=== PATIENT | male | born 1960 | race African-American/Black ===

== ENCOUNTER 2020-05-05 19:10 | Inpatient (IN) | payer OTHER ==
[~2020-05-05] VITALS: Ht 177.8 cm; Wt 79.8 kg
[2020-05-05 19:14] VITALS: BP 186/113
[2020-05-05 19:41] LABS: ABSOLUTE NEUTROPHILS 7.1 thou/uL (1.4-8.2); BASOPHILS 0.4 % (0.0-2.0); EOSINOPHILS 0.6 % (0.0-3.0); HEMATOCRIT 50.8 % (42.0-52.0); HEMOGLOBIN 16.5 gm/dL (14.0-18.0); LYMPHOCYTES 11.4 % (24.0-44.0); MCH 28.2 pg (26.0-34.0); MCHC 32.5 g/dL (28.0-37.0); MCV 86.7 fL (80.0-100.0); MONOCYTES 6.1 % (1.0-8.0); PLATELET COUNT 174 thou/uL (150-400); POLYS 81.5 % (36.0-66.0); RBC 5.85 mil/uL (4.50-6.00); RDW 14.7 % (10.5-14.5); WBC 8.8 thou/uL (4.0-11.0)
[2020-05-05 19:57] LABS: ANION GAP 10 mmol/L (7-16); BUN 15 mg/dL (7-18); CALCIUM 8.8 mg/dL (8.5-10.1); CHLORIDE 101 mmol/L (98-107); CO2 29 mmol/L (21-32); CREATININE 0.9 mg/dL (0.7-1.3); GLUCOSE 104 mg/dL (74-106); POTASSIUM 4.6 mmol/L (3.5-5.1); SODIUM 140 mmol/L (136-145)
[2020-05-05 20:04] LABS: ALBUMIN 4.4 g/dL (3.4-5.0); SGOT 35 U/L (15-37); SGPT 36 U/L (30-65); TOTAL BILIRUBIN 0.5 mg/dL (0.2-1.0); TROPONIN-I <0.06 ng/mL (<0.06)
[2020-05-05 20:53] VITALS: BP 120/79
[2020-05-05] MEDS ORDERED: TRAMADOL-ACETA1 EACH PO (20:54)
[2020-05-05] MEDS ORDERED: LIPITOR40 MG PO (20:55)
[2020-05-05] MEDS ORDERED: CHILDREN'S ASPI81 M1 PO (20:55)
[2020-05-05] MEDS ORDERED: PROAIR HFA8.5 GM INH (21:00)
[2020-05-05 21:11] LABS: BE(vivo) 0.4 mmol/L (-2 to +3); HCO3 26.2 mmol/L (22.0-26.0); PCO2 46.4 mmHg (35.0-45.0); PO2 111.4 mmHg (80.0-100.0); sO2 97.9 % (92.0-98.0)
[2020-05-05 21:46] VITALS: BP 121/76
[2020-05-05 21:57] VITALS: BP 166/88
--- NOTE | 2020-05-06 03:25 | NUR ---
ASSESSMENT: PT REMAIN ALERT AND ORIENT TIMES THREE, FORGETFUL. IS NOT A GOOD HISTORIAN REGARDING HIS CARE, HIS EQUIPMENT (OXYGEN) AT HOME. DENIES ANY CARDIAC HX. DENIES PAIN. SOB WITH EXERTION, LUNG SOUNDS COARSE/WHEEZY. DOES GET BREATHING TX EVERY 4 HOURS. SR-ST PER MONITOR. WILL CONTINUE TO MONITOR.
[2020-05-06 05:42] VITALS: BP 135/77
[2020-05-06 07:13] LABS: CHOLESTEROL 140 mg/dL (<200); HDL CHOLESTEROL 74 mg/dL (>40); LDL CHOLESTEROL 55 mg/dL (<100); TC:HDL 1.9 Ratio (Not establshd); TRIGLYCERIDE 56 mg/dL (<150); VLDL 11 mg/dL (<40)
[2020-05-06 07:30] VITALS: BP 142/76
--- NOTE | 2020-05-06 07:39 | EKG ---
[facility] [place] [address] ELECTROCARDIOGRAM REPORT Name: PROSPER BANUELOS Room #: 219-P ADM IN M.R.#: [id number] Admission: 05/05/20 Attend Phys: Becca Mckenna Discharge: Date of : 60 Report #: [id number] THIS REPORT FOR: cc: DANK CRENSHAW MD Physician not on staff Lux Alvarenga MD [facility] ~ THIS REPORT FOR: //name// [facility] ED Test Date: 2020-05-05 Test Time: 19:42:14 Pat Name: PROSPER BANUELOS Department: Room: 219 Gender: M Plant Health Care Technician: : 1960 Requested By: Agus Joyner Order Number: [id number] MD: Lux Alvarenga Measurements Intervals [place] Rate: 105 P: 86 [place]: 151 QRS: -5 QRSD: 100 T: 61 QT: 360 QTc: 476 Interpretive Statements Sinus tachycardia Biatrial enlargement Borderline prolonged QT interval No previous ECG available for comparison Electronically Signed On 05-06-2020 7:39:13 CDT by Lux Alvarenga [email or web address] <ELECTRONICALLY SIGNED> By: Lux Alvarenga MD, FACC 05/06/20 0739 41 41 Lux Alvarenga MD, FAC /EPI
--- NOTE | 2020-05-06 10:30 | NUR ---
JACQUELYN ON 3W CALLED FOR REPORT. PT TO BE TRANSFERRED TO ROOM 356 FOR COVID R/O.
[2020-05-06 10:47] VITALS: BP 148/71
--- NOTE | 2020-05-06 13:30 | NUR ---
VOICEMAIL LEFT WITH NEXT OF KIN REGARDING TRANSFER.
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
[2020-05-06 13:51] LABS: AMP/METHAMP Negative (Negative); BARBITURATES Negative (Negative); BENZODIAZEPINES Negative (Negative); COCAINE POSITIVE (Negative); METHADONE Negative (Negative); OPIATES Negative (Negative); PCP Negative (Negative)
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
[2020-05-06 15:50] VITALS: BP 140/82
[2020-05-06 19:29] VITALS: BP 140/92
[2020-05-07 04:08] VITALS: BP 117/67
[2020-05-07 06:26] LABS: HEMATOCRIT 44.8 % (42.0-52.0); MCH 27.9 pg (26.0-34.0); MCV 87.5 fL (80.0-100.0); RBC 5.13 mil/uL (4.50-6.00); RDW 14.7 % (10.5-14.5)
[2020-05-07 06:37] LABS: HEMOGLOBIN 14.3 gm/dL (14.0-18.0)
--- NOTE | 2020-05-07 06:43 | NUR ---
FOLLOWING POC WITH IVPB ANTIBIOTICS AND OXYGEN THERAPY. VSS, NO FEVERS, NO N/V OR COMPLAINTS OF PAIN. PT VOIDS VIA URINAL AND SLEPT PEACEFULLY.
[2020-05-07 06:52] LABS: CALCIUM 8.7 mg/dL (8.5-10.1); CREATININE 1.3 mg/dL (0.7-1.3); POTASSIUM 4.3 mmol/L (3.5-5.1)
[2020-05-07 08:00] VITALS: BP 145/83
--- NOTE | 2020-05-07 13:11 | NUR ---
SW reviewed chart and spoke with nursing and attending physician. Pt's COVID test is negative. Enhanced Isolation precautions discontinued. Pt to transfer to when a room is available. Pt is on IV abx/IV steroids. On 3L of O2. Pt's goal is to return home. PT/OT working with pt to assist with recommendations for discharge needs. SW is following to assist as needed with discharge planning.
--- NOTE | 2020-05-07 18:36 | NUR ---
ARRIVED FROM VIA W/C, ORIENTED TO THE ROOM, AND PAIKIM HAVE NO CONCERNS AT THIS TIME. WILL CONTINUE WITH POC.
[2020-05-07 18:39] VITALS: BP 170/94
--- NOTE | 2020-05-07 19:17 | NUR ---
PATIENT TRANSFERED TO CCU. HE IS ALERT ORIENTED X4. PLEASANT WITH CARES.
[2020-05-07 20:20] VITALS: BP 142/88
[2020-05-08] VITALS (7 sets, daily range): BP systolic 124–162; BP diastolic 66–83
--- NOTE | 2020-05-08 03:45 | NUR ---
Assumed pt care at 1900. Pt is alert and oriented. No sign of distress noted in pt. Denies any pain. Fall precaution in place. Assessment completed and documented. Scheduled meds administered to pt. No acute distress noted in pt. Continue to monitor. No further needs at this time.
--- NOTE | 2020-05-08 16:39 | NUR ---
ASSUMED CARE PT SHIFT CHANGE. ASSESSMENTS CHARTED.MEDS GIVEN PER MAR. PT ALERT AND ORIENTED.VSS. C/O SOB THIS AM. PHYSICIAN NOTIFIED. ORDERS RECEIVED. O2 SATS WNL ON 3L. PT UP WITH PHYS THERAPY TOLERATING FAIR. PROGRESSING SLOWLY TOWARDS GOALS. WILL CONT TO MONITOR AND FOLLOW POC.
--- NOTE | 2020-05-09 01:53 | NUR ---
1951 PATIENT WITH SOA PRIOR TO SHIFT CHANGE AND STAT CHEST CXR ORDERED. RESULTS BACK AND CALL PLACED TO DR. ALCANTARA. SOA BETTER PAST PAIN MEDICATION GIVEN. 2009 DR. ALCANTARA RETURNED CALL. ORDERS FOR PORTABLE CHEST X-RAY IN AM. ORDER PLACED IN [facility]. 2350 PATIENT SLEEPING WITHOUT PRESENT COMPLAINTS. PAIN MEDICATION GIVEN AT 2326 WITH NOTED RELIEF. CHEST TUBE REMAINS TO H2O SEAL. NO FURTHER COMPLAINTS OF SOA AT THIS TIME. 0200 SLEEPING WITHOUT COMPLAINTS AT THIS TIME. WORKING ON GOALS AND PLAN OF CARE FOR NOC. PROGRESSING SLOWLY TOWARDS DISCHARGE GOALS. CONTINUE TO ASSES CLOSELY.
--- NOTE | 2020-05-09 03:35 | NUR ---
Assumed pt care at 1900. Pt is alert and oriented. No sign of distress noted in pt. Denies any pain. Fall precaution in place. Assessment completed and documented. Scheduled meds administered to pt. No complaints. No acute events overnight. Anticipating discharged. No further needs at this time.
[2020-05-09 04:45] VITALS: BP 150/78
[2020-05-09 07:25] VITALS: BP 160/70
[2020-05-09 11:05] VITALS: BP 120/72
[2020-05-09] MEDS ORDERED: CLARITIN10 M2 PO (12:40)
[2020-05-09] MEDS ORDERED: PREDNISONE 5 MG5 MG PO (12:40)
[2020-05-09] MEDS ORDERED: NICOTINE1 EAC2 TRANSDERM (12:40)
[2020-05-09] MEDS ORDERED: DOXYCYCLINE 10100 M2 PO (12:40)
[2020-05-09] MEDS ORDERED: FLONASE 0.05%50 MCG NASAL (12:40)
[2020-05-09] MEDS ORDERED: ACETAMINOPHEN325 M1 PO (12:40)
[2020-05-09] MEDS ORDERED: ALBUTEROL2.5 MG/31 INH (12:40)
[2020-05-09] MEDS ORDERED: PULMICORT0.5 MG/21 INH (12:40)
[2020-05-09 13:16] LABS: ABSOLUTE NEUTROPHILS 9.9 thou/uL (1.4-8.2); BASOPHILS 0.1 % (0.0-2.0); EOSINOPHILS 0.4 % (0.0-3.0); HEMATOCRIT 48.3 % (42.0-52.0); HEMOGLOBIN 15.6 gm/dL (14.0-18.0); LYMPHOCYTES 5.3 % (24.0-44.0); MCH 28.2 pg (26.0-34.0); MCHC 32.3 g/dL (28.0-37.0); MCV 87.2 fL (80.0-100.0); MONOCYTES 3.8 % (1.0-8.0); PLATELET COUNT 159 thou/uL (150-400); POLYS 90.4 % (36.0-66.0); RBC 5.54 mil/uL (4.50-6.00); RDW 14.7 % (10.5-14.5)
[2020-05-09 13:33] LABS: CALCIUM 8.8 mg/dL (8.5-10.1); CREATININE 0.9 mg/dL (0.7-1.3); POTASSIUM 4.5 mmol/L (3.5-5.1)
--- NOTE | 2020-05-09 13:52 | NUR ---
Pt dcing home this afternoon. Pt's friend Naina will be coming to pick him up with his portable o2. He will need a rwalker at [place]. Dc corporate planner has called auth request to [place] [employer] and [facility] given a the script. Their liason will issue it this afternoon for the pt to take home with him. HH nursing referral discussed with the pt and he does not feel he needs HH visits as his friend/room mate is a WATER CHEMIST and he [place] [facility]. Care team and the attending updated. No other dc planning interventions indicated.
[2020-05-09 13:55] VITALS: BP 120/72
--- NOTE | 2020-05-09 16:04 | NUR ---
ASSESSMENT CHARTED. PT ALERT AND ORIENTED. VSS. SOB NOTED WITH ACTIVITY. RT TREAMENT PROVIDED ORDERED. SEEN BY DR. CRAVEN AND . ORDERS GIVEN TO DISCHARGE PT TO HOME. DISCHARGE INSTRUCTIONS GIVEN TO PT. PT VERBERLISED UNDERSTANDING.
== END 2020-05-09 16:07 | disposition home or self-care (01) | DRG 193 ==
LOC: ER 19:10 → EROBS 20:19 → 2N 20:19 → 3W 05-06 10:39 → 2N 05-07 17:51
PROVIDERS: Emergency Medicine; Nurse Practitioner Family; ADMIT Internal Medicine; ATTEND Internal Medicine
PROC: 5A09357 Assistance with Respiratory Ventilation, Less than 24 Consecutive Hours, Continuous Positive Airway Pressure (ICD-10-PCS; principal; 2020-05-05)
DX: J15.9 Unspecified bacterial pneumonia (principal); J96.21 Acute and chronic respiratory failure with hypoxia; J44.1 Chronic obstructive pulmonary disease with (acute) exacerbation; J44.0 Chronic obstructive pulmonary disease with (acute) lower respiratory infection; J45.909 Unspecified asthma, uncomplicated; E78.5 Hyperlipidemia, unspecified; F17.210 Nicotine dependence, cigarettes, uncomplicated; F14.10 Cocaine abuse, uncomplicated; Z20.828 Contact with and (suspected) exposure to other viral communicable diseases; Z86.73 Personal history of transient ischemic attack (TIA), and cerebral infarction without residual deficits; Z82.5 Family history of asthma and other chronic lower respiratory diseases; Z71.6 Tobacco abuse counseling; Z71.51 Drug abuse counseling and surveillance of drug abuser; Z79.82 Long term (current) use of aspirin; Z79.899 Other long term (current) drug therapy; Z91.040 Latex allergy status
CPT/HCPCS: 10081; 10879; 27000

== ENCOUNTER 2020-09-15 05:38 | Inpatient (IN) | payer OTHER ==
[~2020-09-15] VITALS: Ht 180.3 cm; Wt 74.8 kg
[~2020-09-15 05:38] MED LIST: ACETAMINOPHEN325 M1 PO; ALBUTEROL2.5 MG/31 INH; CHILDREN'S ASPI81 M1 PO; CLARITIN10 M2 PO; DOXYCYCLINE 10100 M2 PO; FLONASE 0.05%50 MCG NASAL; LIPITOR40 MG PO; NICOTINE1 EAC2 TRANSDERM; PREDNISONE 5 MG5 MG PO; PROAIR HFA8.5 GM INH; PULMICORT0.5 MG/21 INH; TRAMADOL-ACETA1 EACH PO
[2020-09-15 05:39] VITALS: BP 175/112
[2020-09-15 06:01] LABS: ABSOLUTE NEUTROPHILS 3.2 thou/uL (1.4-8.2); BASOPHILS 0.8 % (0.0-2.0); HEMATOCRIT 48.9 % (42.0-52.0); HEMOGLOBIN 15.7 gm/dL (14.0-18.0); LYMPHOCYTES 22.4 % (24.0-44.0); MCH 27.9 pg (26.0-34.0); MCHC 32.2 g/dL (28.0-37.0); MCV 86.8 fL (80.0-100.0); MONOCYTES 11.4 % (1.0-8.0); PLATELET COUNT 123 thou/uL (150-400); POLYS 65.4 % (36.0-66.0); RBC 5.64 mil/uL (4.50-6.00); RDW 14.1 % (10.5-14.5); WBC 4.9 thou/uL (4.0-11.0)
[2020-09-15 06:08] LABS: ANION GAP 7 mmol/L (7-16); BUN 20 mg/dL (7-18); CALCIUM 8.4 mg/dL (8.5-10.1); CHLORIDE 99 mmol/L (98-107); CO2 32 mmol/L (21-32); CREATININE 1.2 mg/dL (0.7-1.3); GLUCOSE 101 mg/dL (74-106); POTASSIUM 4.8 mmol/L (3.5-5.1); SODIUM 138 mmol/L (136-145)
[2020-09-15 06:18] LABS: ALBUMIN 3.9 g/dL (3.4-5.0); SGOT 64 U/L (15-37); SGPT 45 U/L (16-63); TOTAL BILIRUBIN 0.3 mg/dL (0.2-1.0); TOTAL PROTEIN 7.6 g/dL (6.4-8.2); TROPONIN-I <0.06 ng/mL (<0.06)
[2020-09-15 06:42] LABS: BE(vivo) -0.6 mmol/L (-2 to +3); HCO3 25.6 mmol/L (22.0-26.0); PCO2 47.7 mmHg (35.0-45.0); PO2 166.9 mmHg (80.0-100.0); pH 7.347 (7.360-7.450)
--- NOTE | 2020-09-15 07:45 | EKG ---
[place] [address] [address] [employer] [place] [address] ELECTROCARDIOGRAM REPORT Name: PROSPER BANUELOS Room #: REG ROXANA Reyes#: [id number] Admission: 09/15/20 Attend Phys: Discharge: Date of : 60 Report #: [id number] [facility] ED Test Date: 2020-09-15 Test Time: 05:50:42 Pat Name: PROSPER BANUELOS Department: Room: Gender: Cmv Driver: lawson : 1960 Requested By: Prosper Mchugh Order Number: [id number] MD: Lux Alvarenga Measurements Intervals [place] Rate: 98 P: 76 [place]: 140 QRS: -19 QRSD: 101 T: 64 QT: 372 QTc: 476 Interpretive Statements Sinus rhythm Biatrial enlargement Borderline left axis deviation RSR' in V1 or V2, probably normal variant Compared to ECG 05/05/2020 19:42:14 RSR' in V1 or V2 now present Sinus tachycardia no longer present Electronically Signed On 09-15-2020 7:45:50 GRAVITY MANAGER by Lux Alvarenga [email or web address] <ELECTRONICALLY SIGNED> By: Lux Alvarenga MD, [facility] 09/15/20 0745 0550 0550 Lux Alvarenga MD, FACC /EPI
[2020-09-15 08:58] VITALS: BP 125/76
[2020-09-15 09:35] VITALS: BP 123/82
[2020-09-15 10:08] VITALS: BP 145/81
[2020-09-15 15:49] VITALS: BP 125/79
--- NOTE | 2020-09-15 16:22 | NUR ---
PT BREATHING BECOMING MORE LABORED. O2 SAT 99% ON 4LNC. RR 30. PAGED
[2020-09-15 19:48] VITALS: BP 141/74
[2020-09-16 03:33] VITALS: BP 141/84
--- NOTE | 2020-09-16 04:16 | NUR ---
Requested med for back pain which he stated he had for several years. Hydrocodone given with some relief. He slept well during the night. Received pt. with O2 at 4L ,tachypneic at beginning of shift and gets short of breath with minimal exertion. Once he rested he started to calm down. Maintaining O2 sat in the mid to upper 90's on 4L/NC. Afebrile.
[2020-09-16 07:34] VITALS: BP 132/67
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
[2020-09-16 19:17] VITALS: BP 154/87
--- NOTE | 2020-09-17 03:56 | NUR ---
Pt. requested pain med at HS , hydrocodone given with some relief of back pain. He slept some during the night. Maintaining O2 sat in the mid to upper 90's on 2L/NC. He does get very short of breath with minimal exertion. Afebrile. Voiding per urinal. Bed alarm on for safety and SCD's in place.
[2020-09-17 04:33] VITALS: BP 144/96
[2020-09-17 07:19] VITALS: BP 171/103
--- NOTE | 2020-09-17 14:20 | NUR ---
SW reviewed chart and spoke with nursing and attending physician. Enhanced Isolation precautions have been discontinued. Pt to transfer off of 3W when a bed is available. Plan is for pt to discharge home when medically stable. Pt has home O2 in place. SW is following to assist as needed with discharge planning.
[2020-09-17 15:24] VITALS: BP 153/84
--- NOTE | 2020-09-17 17:08 | NUR ---
RN ASSUMED PT'S CARE AT 0700AM, PT IS A&OX3, PT IS ON O2 2-4L/MIN/NC, PT HAS SOB WITH ACTIVITES, PT'S COVID ISOLATION IS OFF, PT IS CONTINUING IV ABX , PT GETS UP TO CHAIR WITH ASSIST, PT'S BACK PAIN CAN CONTROL BY MEDICATION, PT'S VS ARE STABLE AT THIS TIME.
[2020-09-17 19:32] VITALS: BP 158/96
[2020-09-18 03:14] VITALS: BP 186/100
--- NOTE | 2020-09-18 05:18 | NUR ---
Pt. rested quietly at intervals during the night when checked on during frequent rounds. He c/o back pain and po pain med given (see emar) with some relief noted. Pt. dependent on oxygen and gets easily short of air upon any kind of activity. Has been up in recliner chair per his request with chair alarm on.
[2020-09-18 07:25] VITALS: BP 146/83
--- NOTE | 2020-09-18 14:46 | NUR ---
SW reviewed chart and spoke with nursing and attending physician. Enhanced Isolation precautions have been discontinued. Discharge home is anticipated for Tuesday. Call placed to pt's room. No answer. Plan is for pt to discharge home when medically stable. VELMA is following to assist as needed with discharge planning.
[2020-09-18 17:41] VITALS: BP 149/80
[2020-09-18 20:14] VITALS: BP 171/88
[2020-09-19 04:28] VITALS: BP 138/61
--- NOTE | 2020-09-19 05:30 | NUR ---
Pt. requested pain med at for his chronic back pain, hydrocodone given with some relief. He rested intermittently in the recliner chair. O2 at 3L/NC and he gets very short of breath with minimal exertion. Encouraged to relax and take a deep breath as he gets anxious. Refused breathing tx around [place] and refused this am's treatment despite him being short of breath. Explained to pt. and encouraged him to have it to help him breathe easier.He agreed to have treatment and stated it did help. Scheduled solumedrol given. Voided per urinal and up with assist to commode last night to have a bm. Pt. transferred to room 459 with all his belonings since he is out of enhanced precaution.
--- NOTE | 2020-09-19 06:10 | NUR ---
TRANSFERED TO THE UNIT FROM [facility] COVID TESTING WAS NEGATIVE AND ENHANCED PRECAUTIONS WERE NEEDED. UPON ARRIVAL TO THE UNIT PT WAS SOA WITH EXERTION AND SEEMED TO BE DISPLAYING ANXIETY. EXPIRATORY WHEEZES HEARD BILATERALLY. PT IS ON 3 LITERS OF 02. DENIES ANY C/O PAIN. VSS. ASSESSMENT IS CHARTED. AM MEDICATIONS GIVEN BY PREVIOUS NURSE. AT THIS TIME, PT IS SITTING UP IN HIS BED WITH HOB ELEVATED WATCHING TV. FALL PRECAUTIONS IN PLACE, CALL LIGHT IS WITHIN REACH. WILL CONTINUE TO MONTIOR.
[2020-09-19 08:02] VITALS: BP 119/89
--- NOTE | 2020-09-19 11:03 | NUR ---
PATIENT PLACED ON BIPAP APPROX 1000. IT IS 1100 AND PATIENT WILL NOT KEEP BIPAP MASK ON. RESPIRATORY NOTIFIED AND PLACED PATIENT BACK ON NASAL CANNULA. PATIENT HAS ORDERS TO TRANSFER TO , CALLED FLOOR AND NO ROOM AVAILABLE YET, NOTIFIED FEED ELEVATOR WORKER. PATIENT 95%, LABORED BREATHING, TIRED, SOA EVEN WHEN TALKING. A&OX4, VSS, FOWLERS POSITION, WILL CONTINUE TO MONITOR.
[2020-09-19 13:00] VITALS: BP 128/89
[2020-09-19 13:06] VITALS: BP 129/89
--- NOTE | 2020-09-19 13:07 | NUR ---
ASSUMED CARE OF PT AT 1300. PT WAS A TRANSFER FROM [facility] DUE TO INCREASE SHORTNESS OF BREATH. PT REFUSED TO WEAR THE BIPAP. VSS. PT VERY TACHYPNIC. PT DENIES PAIN AT THIS TIME. PT DID TOLERATE MEALS, AND IS UP SITING IN THE CHAIR. WILL CONTINUE TO MONITOR.
[2020-09-19 16:20] VITALS: BP 128/75
[2020-09-19 19:32] VITALS: BP 143/78
[2020-09-20 04:32] VITALS: BP 143/90
--- NOTE | 2020-09-20 04:59 | NUR ---
ASSUMED PATIENT CARE AT 1845. VITAL SIGNS STABLE WITH PATIENT HAVING NO COMPLAINTS OF NAUSEA. PATIENT DID COMPLAIN OF PAIN IN BACK WHICH WAS TREATED APPROPRIATELY THROUGH MEDICATION. PATIENTS LUNG SOUNDS ARE COARSE WITH PATIENT EXHIBITING WHEEZING. HIS OXYGEN SATURATION HAS BEEN CONSISTENTLY IN THE MID 90'S. UP MULTIPLE TIMES TO BEDSIDE COMMODE WITH ASSISTANCE INCIDENT FREE. CONTINUE PLAN OF CARE.
[2020-09-20 07:25] VITALS: BP 137/64
[2020-09-20 11:23] VITALS: BP 119/84
[2020-09-20 16:12] VITALS: BP 109/64
--- NOTE | 2020-09-20 16:48 | NUR ---
ASSUMMED PT CARE AT APPROXIMATELY 0700. PT A&O X4. ASSESSMENT CHARTED. FALL PRECAUTIONS IN PLACE. PT DENIES HAVING CHEST PAIN. PT HAS SOB ON EXERSION. O2 STAT STABLE. VITAL SIGNS STABLE. BLOOD SUGARS STABLE. EDUCATED PT ABOUT POC. PT STATED UNDERSTANDING AND DENIED HAVING FURTHER QUESTIONS. PT UP TO CHAIR THROUGHOUT SHIFT. PT COMFORTABLE. PT DENIES HAVING FURTHER CONCERNS.
[2020-09-20 20:19] VITALS: BP 122/74
[2020-09-21 04:33] VITALS: BP 109/57
--- NOTE | 2020-09-21 07:51 | NUR ---
ASSUMED CARE OF THE PATIENT AT 1900; AOX4; PREFERS CHAIR TO BED; STB TO BSC/URINAL CHAIRSIDE; 2LPM NC WITH GOOD 02 SAT; VSS; SR/SB ON THE MONITOR; PLAN IS FOR PATIENT TO CONTINUE CURRENT THERAPY WITH D/C POSSIBLE IN A FEW DAYS; WILL CONTINUE TO MONITOR AND FOLLOW POC.
[2020-09-21 08:05] VITALS: BP 140/75
[2020-09-21 11:25] VITALS: BP 116/58
--- NOTE | 2020-09-21 13:42 | NUR ---
CARE ASSUMED AT 0700, PT ALERT AND ORIENTED X4, PT DENIES ANY CHEST PAIN, NAUSEA AND VOMITTING. PT UP IN THE CHAIR, GAVE HYDROCODONE FOR PAIN THE AM. VITAL SIGNS AND ASSESSENT STABLE. USES CALL LIGHT APPROPRIATELY. UP TO BSC INDEPENDENTLY. DENIES ANY NEEDS TOÑA, WILL CONTINIUE TO MONITOR.
[2020-09-21 15:14] VITALS: BP 138/76
[2020-09-21 20:00] VITALS: BP 133/81
[2020-09-22] VITALS (7 sets, daily range): BP systolic 117–147; BP diastolic 65–78
[2020-09-22 03:29] LABS: HEMATOCRIT 44.1 % (42.0-52.0); HEMOGLOBIN 13.9 gm/dL (14.0-18.0); MCH 27.2 pg (26.0-34.0); MCHC 31.5 g/dL (28.0-37.0); MCV 86.4 fL (80.0-100.0); RBC 5.11 mil/uL (4.50-6.00); RDW 14.1 % (10.5-14.5); WBC 12.2 thou/uL (4.0-11.0)
[2020-09-22 03:42] LABS: CALCIUM 8.2 mg/dL (8.5-10.1); POTASSIUM 4.3 mmol/L (3.5-5.1)
[2020-09-22] MEDS ORDERED: PREDNISONE 10 M10 M1 PO (12:29)
[2020-09-22] MEDS ORDERED: LEVOFLOXACIN500 MG PO (12:30)
[2020-09-22] MEDS ORDERED: FLOMAX0.4 MG PO (12:35)
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
--- NOTE | 2020-09-22 19:03 | NUR ---
ALTERNATELY USES URINAL OR INCONTINENT. INCONT OF LIQUID STOOL THIS A.M. UNABLE TO COMPLETE REST AND EXERCISE. TRANSPORT OPTIONS ARE FEW. FALL PRECAUTIONS IN PLACE.
[2020-09-23 03:11] VITALS: BP 111/65
--- NOTE | 2020-09-23 08:00 | NUR ---
NO EVENT OVERNIGHT. C/O BACK PAIN X 1. NO NAUSEA, SOB, OR CHEST PAIN REPORTED. WILL CONTINUE TO MONITOR.
--- NOTE | 2020-09-23 15:25 | NUR ---
FAXED REFERRAL TO [facility] RECEIVED CONFIRMATION AND LEFT MSG WITH [facility] IN INTAKE HE DELIVERED A PORTABLE TANK TO PT PRIOR TO DC.
[2020-09-23 15:28] VITALS: BP 118/65
--- NOTE | 2020-09-23 15:30 | NUR ---
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 Called [facility], [facility], and [facility] not noted on service. Discussed with patient new oxygen set up and he is agreeable. no prefernce. Referral to [facility]. Rec order and sat/exercise. DC cyber ops planner faxed pertinent information to [facility]. Oxygen tank delivered to room. Plan to arrange wc van to home. Have called [facility] today to alert of dc. Left message.
--- NOTE | 2020-09-23 15:46 | NUR ---
HANDED OFF PATIENT TO [facility] ANTON[facility] POTTER AT 1530. REPORT GIVEN.
--- NOTE | 2020-09-23 18:06 | NUR ---
ASSUMED CARE OF PT AT APPROX 1530 FROM OFFGOING NURSE. PT A&OX4, NO C/O PAIN. PT READY FOR DISCHARGE HOME. TRANSPORTATION VIA WHEELCHAIR VAN HOME.
== END 2020-09-23 18:12 | disposition home or self-care (01) | DRG 189 ==
LOC: ER 05:38 → 2N 08:07 → EROBS 08:07 → 3W 09:37 → 4W 09-19 05:24 → 2N 09-19 12:45
PROVIDERS: Emergency Medicine; Hospitalist; ADMIT Hospitalist; ATTEND Hospitalist
DX: J96.01 Acute respiratory failure with hypoxia (principal); J44.1 Chronic obstructive pulmonary disease with (acute) exacerbation; E87.1 Hypo-osmolality and hyponatremia; J45.901 Unspecified asthma with (acute) exacerbation; F17.210 Nicotine dependence, cigarettes, uncomplicated; E78.5 Hyperlipidemia, unspecified; F14.19 Cocaine abuse with unspecified cocaine-induced disorder; Z20.822 Contact with and (suspected) exposure to COVID-19; Z91.040 Latex allergy status; Z86.73 Personal history of transient ischemic attack (TIA), and cerebral infarction without residual deficits; Z82.5 Family history of asthma and other chronic lower respiratory diseases; Z79.899 Other long term (current) drug therapy
CPT/HCPCS: 10081; 10797; 10879